=== PATIENT | male | born 1945 | race Caucasian/White ===

== ENCOUNTER → 2024-03-13 08:01 | Outpatient (REF) | payer OTHER, SELFPAY | LOC: RAD 08:01 | PROVIDERS: ATTENDING PHYSICIAN Thoracic Surgery (Cardiothoracic Vascular Surgery); FAMILY PHYSICIAN Family Medicine | DX: C34.2 Malignant neoplasm of middle lobe, bronchus or lung (principal) | CPT/HCPCS: 71250 ==

== ENCOUNTER 2024-07-26 19:17 | Emergency (ER) | payer OTHER, SELFPAY ==
[2024-07-26 19:20] VITALS: BP 172/70
--- NOTE | 2024-07-26 21:12 | ED.GENMED ---
History of Present Illness
General
Chief Complaint: DVT/Possible Blood Clot
Source: patient
Exam Limitations: none
Time Seen by Provider: 07/26/24 20:28
Nursing documentation reviewed up to this point in time: agreed with except (Patient is concerned about pain and redness in his right foot)
History of Present Illness
History of Present Illness:
79-year-old male presents emerged from complaining of pain in his right foot. He states he has gout. He has a drinking 3 beers this weekend. He denies any fevers. He went to urgent care, and was prescribed colchicine and naproxen. No
aggravating or relieving factors.
Past History
Past History
ED Past Medical History: Hypercholesterolemia, Seizures and Psychiatric (Bipolar)
ED Past Surgical History: Orthopedic (Laminectomy), Urological (Prostate) and Other (Lung resection)
Social History
Tobacco: Non-smoker
Alcohol: Occasional
Drug: None
Review of Systems
Review of Systems
Allergies reviewed?: Yes
All Other Systems: Not applicable
Constitutional: Reports no symptoms
EENT: Reports no symptoms
Respiratory: Reports no symptoms
Cardiac: Reports no symptoms
ABD/GI: Reports no symptoms
: Reports no symptoms
Musculoskeletal: Reports joint pain
Skin: Reports rash
Neurological: Reports no symptoms
Endocrine: Reports no symptoms
Hematologic/Lymphatic: Reports no symptoms
Psychiatric: Reports no symptoms
Phy Exam
Physical Exam
Physical Exam:
Physical Exam
General: no apparent distress, not acutely ill
Neck: supple. no meningeal signs. normal posterior pharynx
Heart: s1/s2 regular rate and rhythm, no murmur. equal radial
pulses.
HEENT: Pupils equal round reactive to light, EOMI
Lungs: no acute respiratory distress. clear bilaterally
Abdomen: normal bowel sounds. not tender. no CVAT
Neuro: alert and oriented. no focal neurological deficits cranial nerves II through XII intact
Skin: Erythema and swelling right foot
Psychiatric: well kept. interactive and cooperative
Extremities: Right foot edema. no calf tenderness. negative homans. good distal pulses
Course
Orders/Labs/Results
Orders:
Orders
07/26/24 19:24
US Periph Venous LOWER Ext RT Urgent
Comment:
Reason For Exam: pain, swelling in calf
07/26/24 21:02
IV Insert/Care/Rem.- Treatment PRN
CR Foot - Right Min 3 Views Urgent
Comment:
Reason For Exam: right foot pain and swelling
07/26/24 21:46
Basic Metabolic Panel Urgent
CRP [C-Reactive Protein] Urgent
Complete Blood Count/With Diff Urgent
ESR [Erythrocyte Sed Rate] Urgent
Uric Acid Urgent
07/26/24 22:33
CeFAZolin 2 GRAM [Ancef] 2 grams in 10 ml IV NOW
Abnormal Lab Results
07/26/24
21:46
WBC 11.5 H 10^3/uL
(4.8-10.8)
RBC 3.83 L 10^6/uL
(4.70-6.10)
Hct 37.2 L %
(39.0-52.0)
MCV 97.1 H fL
(80.0-94.0)
MCH 34.5 H pg
(27.0-31.0)
Abs Immat Gran (auto) 0.1 H 10^3/uL
(0-0.05)
Absolute Neuts (auto) 7.8 H 10^3/uL
(1.4-6.5)
Absolute Monos (auto) 1.0 H 10^3/uL
(0.1-0.6)
ESR 23 H mm/hour
(0-20)
C-Reactive Protein 34.10 H mg/L
(0.0-10.00)
07/26/24 21:46
07/26/24 21:46
Vital Signs
Initial and Last Documented VS:
Initial Vital Signs
Temp Pulse Resp BP Pulse Ox
98.8 F 86 20 172/70 94
07/26/24 19:20 07/26/24 19:20 07/26/24 19:20 07/26/24 19:20 07/26/24 19:20
Last Documented Vital Signs
Temp Pulse Resp BP Pulse Ox
98.8 F 86 20 172/70 95
07/26/24 19:20 07/26/24 19:20 07/26/24 19:20 07/26/24 19:20 07/26/24 21:08
MDM/Problems Addressed
Differential Diagnosis Includes:
Cellulitis, gout
MDM/Problems Addressed:
79-year-old male with right foot cellulitis versus gout. Will treat with Keflex and colchicine. Follow-up with podiatry. Return precautions given.
*Radiology
Radiology exam reviewed: preliminary read by ED provider (Right foot x-ray no signs of fracture) and radiology read reviewed (Ultrasound right lower extremity no signs of DVT)
*Pulse Oximetry
Patient hypoxic: no
*Critical Care Note
Total Time (30-74mins, 75-104mins- exclusive of procedures): Not Applicable
Patient Management
Social determinants of health affecting care: Living situation and Strong social support
Escalation/DeEscalation of care consider admission/obs:
Admit not indicated
ED Attending Note
-
Portions of this chart may have been created with voice recognition software.� Occasional wrong word or��sound alike� substitutions may have occurred due to the inherent limitations of voice recognition software.
Discharge Plan
Departure
Patient Disposition: Home (Routine Discharge)
Date of Disposition: 07/26/24
Time of Disposition: 22:46
Patient with high blood pressure during this ER visit?: Yes
Condition: Good
Discharge Problem:
Cellulitis of foot, right
Instructions: Cellulitis (skin infection) in adults - ED discharge instructions, BLOOD PRESSURE
Prescriptions:
New
cephalexin 500 mg capsule
500 mg PO TID 10 Days Qty: 30 0RF
colchicine 0.6 mg tablet
0.6 mg PO BID Qty: 8 0RF
Referrals:
Lillie Recinos DPM [Active] - Call in 1-3 days for appt
UNKNOWN - PT DOES,NOT KNOW [Unknown Provider] -
Interventions
Interventions:
*Risk Screen - Suicide Last Done: 07/26/24 19:23
*General Assessment Last Done: 07/26/24 19:24
*Neglect/Abuse Screening Last Done: 07/26/24 19:23
*Nursing Disposition Last Done: 07/26/24 22:53
ED- Cardiac Assessment Last Done: 07/26/24 21:08
ED- Pulmonary Assessment Last Done: 07/26/24 21:08
ED-Peripheral Vascular Assessment Last Done: 07/26/24 21:08
ED-Skin Assessment Last Done: 07/26/24 21:08
Discharge Date and Time
Print Language: SWEDISH
[2024-07-26 21:58] LABS: % Basophils 0.5 % (0-2); % Eosinophils 1.7 % (0-6); % Immature Granulocytes 0.4 % (0-0.5); % Lymphocytes 21.1 % (20.5-51.1); % Monocytes 8.7 % (1.7-9.3); % Neutrophils 67.6 % (42.2-75.2); Absolute Basophils 0.1 10^3/uL (0-0.2); Absolute Eosinophils 0.2 10^3/uL (0-0.7); Absolute Immature Granulocytes 0.1 10^3/uL (0-0.05); Absolute Lymphocytes 2.4 10^3/uL (1.2-3.4); Absolute Neutrophils 7.8 10^3/uL (1.4-6.5); Hematocrit 37.2 % (39.0-52.0); Hemoglobin 13.2 g/dL (13.0-18.0); Mean Corp Hgb Conc. 35.5 g/dL (33.0-37.0); Mean Corpuscular Hgb 34.5 pg (27.0-31.0); Mean Corpuscular Volume 97.1 fL (80.0-94.0); Mean Platelet Volume 8.9 fL (7.4-10.4); Nucleated Red Blood Cells % 0 % (-); Platelet Count 179 10^3/uL (130-400); Red Blood Cell Count 3.83 10^6/uL (4.70-6.10); Red Cell Dist. Width 12.3 % (11.5-14.5); White Blood Cell Count 11.5 10^3/uL (4.8-10.8)
[2024-07-26 22:20] LABS: Erythrocyte Sed Rate 23 mm/hour (0-20)
[2024-07-26 22:22] LABS: Blood Urea Nitrogen 11 mg/dl (9-20); Calcium 8.9 mg/dl (8.4-10.2); Carbon Dioxide 22 mmol/L (22-30); Chloride 104 mmol/L (98-107); Glucose 88 mg/dl (70-99); Sodium 136 mmol/L (135-145); Uric Acid 5.5 mg/dl (3.5-8.5); eGFR > 60.00
[2024-07-26] MEDS: ANCEF 10 IV (22:47)
== END 2024-07-26 23:13 | disposition home or self-care (01) ==
LOC: EMR 19:17
PROVIDERS: EMERGENCY PHYSICIAN Emergency Medicine; FAMILY PHYSICIAN Family Medicine
DX: L03.115 Cellulitis of right lower limb (principal); E78.00 Pure hypercholesterolemia, unspecified; R22.41 Localized swelling, mass and lump, right lower limb
CPT/HCPCS: 96374; 99284; 73630; 80048; 84550; 85025; 85652; 86140; 93971